=== PATIENT | female | born 1965 | race Caucasian/White ===

== ENCOUNTER 2023-11-24 22:19 | Emergency (ER) | payer OTHER, SELFPAY ==
[2023-11-24 22:52] VITALS: BP 157/88; PULSE 114; RESP 16; TEMP 36.7; O2SAT 98; BMI 27.4
[2023-11-25 03:51] VITALS: BP 151/93; PULSE 82; RESP 16; O2SAT 100
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
[2023-11-25] MEDS: acetaminophen-codeine 300-30mg Tablet 1 TAB PO (04:17)
[2023-11-25 04:55] VITALS: BP 136/76; PULSE 75; RESP 16; O2SAT 99
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
== END 2023-11-25 04:57 | disposition home or self-care (01) ==
PROVIDERS: Emergency Provider Emergency Medicine
DX: S01.01XA Laceration without foreign body of scalp, initial encounter (principal); S50.01XA Contusion of right elbow, initial encounter; S70.01XA Contusion of right hip, initial encounter; V86.69XA Passenger of other special all-terrain or other off-road motor vehicle injured in nontraffic accident, initial encounter
CPT/HCPCS: 12001; 73030; 73080; 73502; 99284